=== PATIENT | male | born 1950 | race Caucasian/White ===

== ENCOUNTER 2018-12-07 09:58 | Day surgery (SDC) | payer BC ==
[2018-12-02 17:30] VITALS: BMI 33.2
[2018-12-07] MEDS ORDERED: LIDOCAINE HCL/PF 2% SDV 5ML VIAL ONE (11:57)
[2018-12-07] MEDS ORDERED: PROPOFOL 20 ML ONE ×2 (11:57)
[2018-12-07 12:30] VITALS: TEMP 98.1
[2018-12-07 12:59] VITALS: BP 104/61; PULSE 66
--- NOTE | 2018-12-09 16:16 | PATH ---
Surgical Pathology Report Patient Name: DIOMEDES GUADARRAMA [facility]. Rec. #: [id number] /Age/Gender: 1950 (Age: 68) / M Account: [id number] Location: [facility] Taken: 12/07/2018 Received: 12/07/2018 Reported: 12/09/2018 Physicians: Navarro Chavez M.D. Specimen(s) Received A: BX POLYP PROXIMAL SIGMOID COLON B: BX POLYP DISTAL SIGMOID COLON Clinical History Screening, family history of polyps Postoperative diagnosis: Diverticulosis, colon polyps Final Diagnosis A. PROXIMAL SIGMOID COLON, POLYP, BIOPSY: TUBULAR ADENOMA. B. DISTAL SIGMOID COLON, POLYP, BIOPSY: TUBULAR ADENOMA. Electronically Signed Samina Sullivan M.D. Gross Description A. Received in formalin, labeled "biopsy polyps proximal sigmoid colon" is a [place], irregular portion of soft tissue measuring 0.6 cm. in greatest dimension. The specimen is submitted in toto in one cassette. B. Received in formalin, labeled "biopsy polyp distal sigmoid colon" is a [place], irregular portion of soft tissue measuring 0.4 cm. in greatest dimension. The specimen is submitted in toto in one cassette. /12/08/2018 saudi12/08/2018
== END 2018-12-07 13:00 | disposition home or self-care (01) ==
LOC: FASU-ENDO 09:58
PROVIDERS: ATTEND Internal Medicine Gastroenterology
PROC: 0DBN8ZX Excision of Sigmoid Colon, Via Natural or Artificial Opening Endoscopic, Diagnostic (ICD-10-PCS; principal; 2018-12-07 11:57)
DX: Z12.11 Encounter for screening for malignant neoplasm of colon (principal); D12.5 Benign neoplasm of sigmoid colon; Z83.71 Family history of colonic polyps; K57.30 Diverticulosis of large intestine without perforation or abscess without bleeding
CPT/HCPCS: 88305-TC

== ENCOUNTER 2019-11-20 16:49 | Emergency (ER) | payer BC ==
[2019-11-20 16:54] VITALS: BP 141/85; PULSE 70; TEMP 98; BMI 31.9
[2019-11-20] MEDS ORDERED: ACETAMINOPHEN 325 MG TABLET (FP) ONE (17:10)
--- NOTE | 2019-11-20 17:24 | PDOC ---
Documentation entered by Renée Scott SCRIBE, acting as scribe for Everett Duarte MD. Everett Duarte MD: This documentation has been prepared by the monseibTyler murray Lincy, SCRIBE, under my direction and personally reviewed by me in its entirety. I confirm that the documentation accurately reflects all work, treatment, procedures, and medical decision making performed by me. History of Present Illness - General Chief Complaint: Injury Stated Complaint: RT MIDDLE FINGER INJURY Time Seen by Provider: 11/20/19 16:53 History Source: Patient Exam Limitations: No Limitations - History of Present Illness Initial Comments: 11/20/19 17:04 The patient is a 69-year-old male with a past medical history significant for Afib (on Xarelto), Asthma, HLD, and prostatitis who presents to the emergency department with a R. hand laceration. The patient reports he was cutting cucumbers in a julian on a mandoline when the right 3rd finger slipped, and the patient sustained a laceration to the finger. The patient reports the skin came off, which the patient brought to the ER in a zip lock bag. The patient wrapped the wound with an madhavi bandage to control bleeding. Denies any numbness or tingling. Allergies: NKDA PCP: Dr. Fabiola Mendoza Past History - Medical History Allergies/Adverse Reactions: Allergies Allergy/AdvReac Type Severity Reaction Status Date / Time No Known Drug Allergies Allergy Verified 11/20/19 16:50 Home Medications: Ambulatory Orders Atorvastatin Ca [Lipitor] 10 mg PO HS 12/02/18 Flecainide Acetate [Tambacor -] 50 mg PO BID 12/02/18 Fluticasone Propionate [Flovent Diskus] 50 mcg IH BID 12/02/18 Montelukast Sodium [Singulair] 10 mg PO HS 12/02/18 Rivaroxaban [Xarelto] 10 mg PO HS 12/02/18 Anemia: No Asthma: Yes Cancer: No Cardiac Disorders: Yes (A-FIB) CVA: No COPD: Yes CHF: No Dementia: No Diabetes: No GI Disorders: No Disorders: No HTN: No Hypercholesterolemia: Yes Liver Disease: No Seizures: No Thyroid Disease: No - Surgical History Abdominal Surgery: No Appendectomy: No Cardiac Surgery: Yes (CARDIAC CATH 2017) Cholecystectomy: No Lung Surgery: No Neurologic Surgery: No Orthopedic Surgery: No - Psycho-Social/Smoking History Smoking History: Never smoked Have you smoked in the past 12 months: No Information on smoking cessation initiated: No - Substance Abuse Hx (Audit-C & DAST Scrn) How often the patient has a drink containing alcohol: Never Score: In Men: 4 or > Positive; In Women: 3 or > Positive: 0 Screen Result (Pos requires Nsg. Audit-10AR): Negative In the last yr the pt used illegal drug/Rx for NonMed reason: No Score: Yes response is considered Positive: 0 Screen Result (Positive result requires Nsg. DAST-10): Negative Review of Systems - Review of Systems Able to Perform ROS?: Yes Comments:: 11/20/19 17:06 CONSTITUTIONAL: Absent: fever, no chills, no fatigue MUSKULOSKELETAL: Absent: numbness or tingling to the hand. SKIN:+hand laceration. Absent: rash *Physical Exam - Vital Signs Last Vital Signs Temp Pulse Resp BP Pulse Ox 98 F 70 20 141/85 97 11/20/19 16:50 11/20/19 16:50 11/20/19 16:50 11/20/19 16:50 11/20/19 16:50 - Physical Exam 11/20/19 17:08 GENERAL: Well-appearing, well-nourished. No apparent distress. EXTREMITIES: Normal ROM in all four extremities. No gross deformities. SKIN: +5mm round skin avulsion over the dorsum of the 3rd DIPJ, small amount of oozing of the wound, no deep structure visible or puncture. Full extension of the distal phalanx against resistance, no sensory deficit. Medical Decision Making - Medical Decision Making 11/20/19 17:25 Minor skin avulsion from the dorsum of the DIP joint. Appears superficial. No tendon or joint capsule exposed. Full, strong extension of the DIP joint against resistance. No sensory deficits. Surgicel applied for hemostasis, with control of bleeding. 2 x 2, tube gauze applied. Patient observed. No persistent bleeding. Elevation and wound care discussed. Fully ambulatory in no pain or other distress at discharge Discharge - Discharge Information Problems reviewed: Yes Clinical Impression/Diagnosis: Skin avulsion Condition: Improved Disposition: HOME - Admission No - Follow up/Referral Referrals: Kirk Alvarez MD [Staff Physician] - - Patient Discharge Instructions Patient Printed Discharge Instructions: DI for Avulsion Laceration (Not Requiring Sutures) Additional Instructions: Rest and elevate tonight. Recheck if bleeding or sign of infection. Wound care as directed. Dr. Alvarez is a hand specialist. He is available for further treatment if necessary. - Post Discharge Activity
[2019-11-20] MEDS ORDERED: ACETAMINOPHEN 325 MG TABLET (FP) PO ONE (17:27)
== END 2019-11-20 17:40 | disposition home or self-care (01) ==
LOC: SUPCPDRO 16:49 → FER 16:49
DX: S61.401A Unspecified open wound of right hand, initial encounter (principal); W26.8XXA Contact with other sharp object(s), not elsewhere classified, initial encounter
CPT/HCPCS: 99283-25

== ENCOUNTER 2022-06-08 11:20 | Observation (INO) | payer BC ==
[2022-06-08 12:38] LABS: INR 1.15 (0.83-1.09); PROTHROMBIN TIME (PATIENT) 13.3 SEC (9.7-13.0)
[2022-06-08 12:40] LABS: ACTIVATED PTT 32.3 SECONDS (25.2-36.5)
[2022-06-08 12:43] LABS: HEMATOCRIT 40.2 % (35.4-49); HEMOGLOBIN 13.9 G/dL (11.7-16.9); MCH 29.5 pg (25.7-33.7); MCHC 34.6 g/dl (32.0-35.9); MEAN CELL VOLUME 85.3 fl (80-96); MEAN PLT VOLUME 7.4 fl (7.5-11.1); PLATELET COUNT 248.8 10^3/uL (134-434); RBC 4.71 10^6/uL (4.00-5.60); RDW 13.8 % (11.9-15.9); WHITE BLOOD COUNT 7.4 10^3/uL (4.0-10.8)
[2022-06-08 12:46] LABS: ALBUMIN 3.9 g/dl (3.4-5.0); BILIRUBIN,TOTAL 1.1 mg/dl (0.2-1); CALCIUM 8.6 mg/dl (8.5-10); CREATININE 0.8 mg/dl (0.55-1.3); PLATELET ESTIMATE ADEQUATE; TOT PROT 6.4 g/dl (6.4-8.2)
[2022-06-08] MEDS ORDERED: SODIUM CHLORIDE 1,000 ML IV SCH (16:30)
[2022-06-08] MEDS ORDERED: RIVAROXABAN 20 MG TABLET PO SCH (18:00)
[2022-06-08 18:06] VITALS: BMI 32.3
[2022-06-08] MEDS ORDERED: DOCUSATE SODIUM 100 MG CAPSULE (FP) PO PRN (21:47)
[2022-06-08] MEDS: FLUTICASONE PROPIONATE IH SCH (21:59)
[2022-06-08] MEDS ORDERED: PATIENT'S OWN MEDICATION (NON-FORMULARY) (Fluticasone Propionate [Flovent Diskus] 50 MCG B IH SCH (22:00)
[2022-06-08] MEDS ORDERED: ROSUVASTATIN CA 10 MG TABLET PO SCH (22:00)
[2022-06-08] MEDS ORDERED: MONTELUKAST NA 10 MG TABLET PO SCH (22:00)
[2022-06-08] MEDS ORDERED: MOMETASONE FUROATE 110 MCG/IH INHALER IH SCH (22:00)
[2022-06-09 09:14] LABS: ALBUMIN 3.6 g/dl (3.4-5.0); BILIRUBIN,TOTAL 0.9 mg/dl (0.2-1); CALCIUM 8.4 mg/dl (8.5-10); CREATININE 0.7 mg/dl (0.55-1.3); MAGNESIUM 2.1 mg/dL (1.8-2.4); TOT PROT 5.7 g/dl (6.4-8.2)
[2022-06-09 10:37] VITALS: RESP 15; TEMP 97.8
[2022-06-09 10:42] VITALS: BP 120/52; PULSE 56
[2022-06-09] MEDS: FLUTICASONE PROPIONATE IH SCH (10:45)
[2022-06-09 11:01] LABS: BASO % 0.4 % (0-2.0); EOS % 3.6 % (0-4.5); HEMATOCRIT 39.5 % (35.4-49); HEMOGLOBIN 13.2 GM/dL (11.7-16.9); LYMPH % 25.3 % (8-40); MCH 29.3 pg (25.7-33.7); MCHC 33.5 g/dl (32.0-35.9); MEAN CELL VOLUME 87.6 fl (80-96); MEAN PLT VOLUME 7.8 fl (7.5-11.1); MONO % 7.7 % (3.8-10.2); PLATELET COUNT 257 10^3/uL (134-434); RBC 4.51 M/mm3 (4.00-5.60); RDW 13.3 % (11.9-15.9); WHITE BLOOD COUNT 6.9 K/mm3 (4.0-10.0)
== END 2022-06-09 13:57 | disposition home or self-care (01) ==
LOC: FER 11:20 → UNDOADMOB 15:35 → FM/S 15:35
PROVIDERS: ADMIT Internal Medicine
PROC: 3E0337Z Introduction of Electrolytic and Water Balance Substance into Peripheral Vein, Percutaneous Approach (ICD-10-PCS; principal; 2022-06-08)
DX: I48.91 Unspecified atrial fibrillation (principal); R00.1 Bradycardia, unspecified; E78.5 Hyperlipidemia, unspecified; N41.1 Chronic prostatitis; J45.909 Unspecified asthma, uncomplicated; Z79.01 Long term (current) use of anticoagulants
CPT/HCPCS: 0241U-QW; 36415; 80053; 83735; 84443; 84484; 85025; 85027; 85610; 85730; 93005; 99285-25; G0378